=== PATIENT | male | born 1980 | race Caucasian/White ===

== ENCOUNTER 2017-12-31 13:14 | Emergency (ER) | payer OTHER ==
[~2017-12-31] VITALS: Ht 188 cm; Wt 74.8 kg
[~2017-12-31 13:14] MED LIST: DAYPRO600 MG PO; DICLOFENAC SODI75 MG PO; IBUPROFEN800 MG PO; NORCO 5-325 TA1 EACH PO; ROBAXIN-750750 MG PO
[2017-12-31] MEDS ORDERED: ONDANSETRON ODT8 MG PO (15:06)
== END 2017-12-31 15:11 | disposition home or self-care (01) ==
LOC: ED 13:14
DX: R11.2 Nausea with vomiting, unspecified (principal); F17.200 Nicotine dependence, unspecified, uncomplicated; Z88.0 Allergy status to penicillin
CPT/HCPCS: 80053; 81001; 82150; 83690; 85025; 96361; 96374; 96375; 99284; J2405; J7030